=== PATIENT | female | born 2000 | race African-American/Black ===

== ENCOUNTER 2022-06-25 11:40 | Emergency (ER) | payer MEDICAID, SELFPAY ==
[2022-06-25 11:49] VITALS: BP 133/59; PULSE 94; RESP 15; TEMP 37.1; O2SAT 99
--- NOTE | 2022-06-25 13:11 | ED.RECABL ---
HPI - Recheck/Abnormal Lab/Rx General Chief Complaint: Recheck/Abnormal Lab/Rx Stated Complaint: requesting test - no period since Mar. Time Seen by Provider: 06/25/22 12:34 History of Present Illness HPI narrative: Patient who is a 21-year-old female presenting with headaches and vomiting. Patient states that for the last couple of months she has intermittent headaches and uncontrollable vomiting. States that it will spontaneously resolve but then returns. She denies obvious aggravating or alleviating factors. Patient states that she stopped her control back in January and she had periods in February and March but she has not had a period since the end of March. She has taken home tests that are negative but she is concerned as she continues to miss her cycle. Also complains of intermittent lower abdominal pain. No fevers, numbness or weakness, vision changes, chest pain, shortness of breath, cough, dysuria, vaginal discharge. Related Data Allergies Allergy/AdvReac Type Severity Reaction Status Date / Time No Known Allergies Allergy Verified 06/25/22 12:17 Review of Systems Review of Systems: All systems reviewed & are unremarkable except as noted in HPI and below Exam Narrative: GENERAL: Well-appearing, well-nourished, and in no acute distress. Pleasant and cooperative HEAD: Normocephalic, atraumatic. EYES: PERRLA and EOMI. ENT: Nares clear, no rhinorrhea or epistaxis. Mucous membranes moist. NECK: Supple. CHEST: Clear to auscultation. No respiratory distress. HEART: Regular rate and rhythm ABDOMEN: Soft, nontender, nondistended EXTREMITIES: Normal range of motion. No edema. SKIN: Warm, dry, no rash. NEURO: No focal deficits. Alert and oriented x3. PSYCH: Normal mood and affect. Course Vital Signs Vital signs: Vital Signs Temperature 98.7 F 06/25/22 11:49 Pulse Rate 94 06/25/22 11:49 Respiratory Rate 15 06/25/22 11:49 Blood Pressure 133/59 L 06/25/22 11:49 Pulse Oximetry 99 06/25/22 11:49 Oxygen Delivery Room Air 06/25/22 11:49 Temperature 97.6 F 06/25/22 18:07 Pulse Rate 80 06/25/22 18:07 Respiratory Rate 16 06/25/22 18:07 Blood Pressure 123/76 06/25/22 18:07 Pulse Oximetry 97 06/25/22 18:07 Oxygen Delivery Room Air 06/25/22 11:49 MDM - Recheck/Abnormal Lab/Rx MDM Narrative Medical decision making narrative: 21-year-old female presenting with several months of intermittent headaches and vomiting. Vitals within normal limits. Exam remarkable for the above. Plan for blood work, fluids, IV Tylenol. Blood work is unremarkable. Normal renal function and electrolytes. Normal lipase. Beta hCG is undetectable. On reevaluation, the patient states that her symptoms have improved. No longer has a headache. Do not feel imaging of her head is necessary given the many months of intermittent symptoms, normal neuro exam, and improvement following Tylenol. Discussed the reassuring work-up with the patient. Advised that she follow-up with [facility] regarding her lack of menstruation since stopping control about 6 months ago. Advised that she follow-up with her PCP regarding this intermittent nausea. Appropriate return precautions were given. Patient voiced understanding and is agreeable with plan. Discharged in stable condition. Differential Diagnosis Differential diagnosis: Likely other (, pancreatitis, gastritis, gastroenteritis, headache) Lab Data 06/25/22 14:46 06/25/22 16:45 Labs: Lab Results 06/25/22 06/25/22 06/25/22 Range/Units 14:14 14:46 16:45 WBC 7.5 (4.5-10.0) K/mm3 RBC 4.83 (4.2-5.4) M/mm3 Hgb 13.9 (12.0-15.0) g/dL Hct 40.4 (37.0-47.0) % MCV 83.6 (80-100) fl MCH 28.8 (26-34) pg MCHC 34.4 (32-36) g/dl RDW 14.5 (11.5-14.5) % Plt Count 348 (150-375) k/mm3 MPV 10.5 H (7.4-10.4) fl Immature Gran % (Auto) 0.3 (0-0.5) % Neut %
[2022-06-25] MEDS: SODIUM CHLORIDE 0.9% IV 1,000 ML 999 ML IV CONT (14:49)
[2022-06-25] MEDS: ONDANSETRON INJ 4 MG/2 ML VIAL IV PUSH (14:49)
[2022-06-25 14:59] LABS: Appearance Urine Clear (Clear); Bacteria Urine None Seen /hpf; Bilirubin Urine Negative (Negative); Blood Urine Negative (Negative); Color Urine Yellow (Yellow); Glucose Urine UA Negative (Negative); Ketones Urine Negative (Negative); Leukocyte Esterase Ur 1+ LEU/UL (Negative); Need Manual Microscopic Reviewed; Nitrate Urine Negative (Negative); Non Pathogenic Casts 0-2; Protein Urine Negative (Negative); RBC Urine 0-2 /hpf (0-2); Specific Grav Ur 1.017 (1.001-1.035); Squamous Epithelial Cell Urine Occasional /hpf (Few); Urobilinogen Urine 0.2 mg/dL (<2.0); WBC Urine 0-5 /hpf; pH Urine 6.5 (5.0-9.0)
[2022-06-25 15:06] LABS: Basophils Percent Auto 0.5 % (0.2-1.2); Eosinophils Absolute Auto 0.2 K/mm3 (0-0.3); Eosinophils Percent Auto 2.4 % (0-4.4); Hematocrit 40.4 % (37.0-47.0); Hemoglobin 13.9 g/dL (12.0-15.0); Immature Granulocyte Absolute 0.02 K/mm3 (0.00-0.031); Immature Granulocyte Percent A 0.3 % (0-0.5); Lymphocytes Absolute Auto 3.21 K/mm3 (0.9-3.2); Lymphocytes Percent Auto 43.1 % (18.3-44.2); Mean Corpuscular HGB Conc 34.4 g/dl (32-36); Mean Corpuscular Hemoglobin 28.8 pg (26-34); Mean Corpuscular Volume 83.6 fl (80-100); Mean Platelet Volume 10.5 fl (7.4-10.4); Monocytes Absolute Auto 0.5 K/mm3 (0.1-0.6); Monocytes Percent Auto 7.1 % (2.6-8.5); Neutrophils Absolute Auto 3.5 K/mm3 (1.3-6.7); Neutrophils Percent Auto 46.6 % (45.5-73.1); Platelet Count Result 348 k/mm3 (150-375); Red Blood Count 4.83 M/mm3 (4.2-5.4); Red Cell Distribution Width 14.5 % (11.5-14.5); White Blood Count 7.5 K/mm3 (4.5-10.0)
[2022-06-25 15:13] LABS: Add Urine Microscopic? YES
[2022-06-25 17:21] LABS: Alanine Aminotransferase 22 U/L (6-35); Albumin Level 4.8 g/dL (3.5-5.1); Alkaline Phosphatase 93 U/L (38-126); Anion Gap 10 mmol/L (8-16); Aspartate Amino Transferase 22 U/L (14-36); Bilirubin,Total 0.5 mg/dL (0.2-1.3); Blood Urea Nitrogen 11 mg/dL (7-17); Calcium 9.3 mg/dL (8.4-10.2); Carbon Dioxide 20 mmol/L (22-30); Chloride 109 mmol/L (98-107); Estimated CRCL calculation 118 ml/min; Estimated Glomerular Filt Rate > 60; Glucose 74 mg/dL (65-110); Lipase 79 U/L (23-300); Sodium 139 mmol/L (137-145)
[2022-06-25 17:38] LABS: Beta HCG Quantitative < 2.39 mIU/ML
[2022-06-25 18:07] VITALS: BP 123/76; PULSE 80; RESP 16; TEMP 36.4; O2SAT 97
== END 2022-06-25 18:07 | disposition home or self-care (01) ==
PROVIDERS: Emergency Provider Emergency Medicine
DX: R51.9 Headache, unspecified (principal); R11.0 Nausea; N91.2 Amenorrhea, unspecified
CPT/HCPCS: 36415; 80053; 81001; 81025; 83690; 84702; 85025; 96361; 96374; 96375; 99284; J0131; J2405; J7030

== ENCOUNTER 2022-10-08 14:19 | Emergency (ER) | payer MEDICAID, SELFPAY ==
--- NOTE | ~2022-10-08 | CT_ITS ---
EXAMINATION: CT soft tissue neck w con DATE: 10/08/2022 17:20 INDICATION: TECHNIQUE: Computed tomography (CT) of the neck was performed with 75 mL Omnipaque-350 intravenous co ntrast. The dose-length product was 642.87 mGy-cm. COMPARISON: None FINDINGS: The thyroid gland is unremarkable. The submandibular and parotid glands are symmetric. There is n o cervical lymphadenopathy. There are no masses identified. The superior mediastinum is unremarka ble. The airway is unremarkable. Parapharyngeal and pre-glottic fat planes are preserved. Lisa l enhancing arteries. The orbits are unremarkable. Visualized sinuses and mastoid air cells are we ll aerated. Left inferior maxillary retention cyst or polyp. The lung apices are clear. No fracture or traumatic malalignment detected in the cervical spine. Reversal of the normal cervical spine lord osis centered at C5-6, with straightening of the upper cervical spine. IMPRESSION: Cervical spine straightening which can occur with positioning or muscle spasm. Otherwise, no acute pr ocess detected in the neck. Reviewed, dictated and finalized at location K. IMPRESSION: Cervical spine straightening which can occur with positioning or muscle spasm. Otherwise, no acute process detected in the neck.
[2022-10-08 14:33] VITALS: BP 125/76; PULSE 89; RESP 18; TEMP 36.4; O2SAT 99
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
[2022-10-08] MEDS: KETOROLAC 30 MG/ML VIAL (*BKC) IV PUSH (17:04)
[2022-10-08 17:15] LABS: Estimated CRCL calculation 105 ml/min; Estimated Glomerular Filt Rate > 60
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
== END 2022-10-08 18:07 | disposition home or self-care (01) ==
PROVIDERS: Emergency Provider Emergency Medicine
DX: M62.838 Other muscle spasm (principal); Y04.8XXA Assault by other bodily force, initial encounter
CPT/HCPCS: 70491; 81025; 96374; 99284; J1885; Q9967